=== PATIENT | female | born 1990 | race American Indian/Alaskan Native ===

== ENCOUNTER 2021-05-29 15:57 | Emergency (ER) | payer OTHER ==
[2021-05-29 17:11] VITALS: BP 107/72
[2021-05-29] MEDS ORDERED: ACETAMINOPHEN 500 MG TAB PO STA (19:55)
[2021-05-29] MEDS ORDERED: KETOROLAC 10 MG TAB PO ONE (19:55)
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
== END 2021-05-29 22:46 | disposition home or self-care (01) ==
LOC: ED 15:57
DX: S13.9XXA Sprain of joints and ligaments of unspecified parts of neck, initial encounter (principal); S40.011A Contusion of right shoulder, initial encounter; V89.2XXA Person injured in unspecified motor-vehicle accident, traffic, initial encounter; Y93.89 Activity, other specified; Y92.89 Other specified places as the place of occurrence of the external cause; Y99.8 Other external cause status; F17.200 Nicotine dependence, unspecified, uncomplicated
CPT/HCPCS: 72070; 72100; 99283